=== PATIENT | female | born 1995 | race Hispanic/Latino ===

== ENCOUNTER 2020-03-23 21:36 | Emergency (ER) | payer SELFPAY ==
[~2020-03-23] VITALS: Ht 167.6 cm; Wt 74.8 kg
[2020-03-23] MEDS ORDERED: ONDANSETRON HCL INJ 2MG/ML 2ML 2 MG/ML VIAL IV STA (21:40)
[2020-03-23] MEDS ORDERED: KETOROLAC TROMETHAMINE 30 MG/ML VIAL IV STA ×2 (21:40→22:22)
[2020-03-23] MEDS ORDERED: SODIUM CHLORIDE 0.9% 1000ML 1,000 ML IV SCH ×2 (21:45→23:15)
[2020-03-23] MEDS ORDERED: MORPHINE SULFATE 5 MG/ML VIAL IV ONE (21:45)
[2020-03-23] MEDS ORDERED: PANTOPRAZOLE 40 MG 10ML VIAL IV STA (21:52)
--- NOTE | 2020-03-23 22:03 | Emergency Department Note ---
History of Present Illnes History of Present Illness Chief Complaint: Abdominal Complaints History of Present Illness This is a 24 year old female . Historian: Patient Arrival Mode: Car History limited by: language barrier Tonsorial Artist Required: Yes Onset (how long ago): day(s) (last night seen at [facility] had work up) Radiation: Reports non-radiation Severity: moderate Duration (how long): day(s) (1) Timing of current episode: constant Progression: unchanged Chronicity: recurrent (Pt has hx of chronic abdominal pain multiple work up never seen GI) Relieving factors: none Exacerbating factors: none Associated symptoms: Reports nausea/vomiting Treatments prior to arrival: other (reglan) Past Medical/Family History Physician Review I have reviewed the patient's past medical and family history. Any updates have been documented here. Past Medical History Recent Fever: No Clinical Suspicion of Infectio: No New/Unexplained Change in Ment: No Past Medical History: None Past Surgical History: Cholecysctectomy (1 month ago) Social History Smoking Cessation: Never Smoker Alcohol Use: None Any Illegal Drug Use: No Review of Systems Review of Systems Constitutional: Denies fever Gastrointestinal: Reports abdominal pain, Reports nausea, Reports vomiting Review of other systems: All other systems negative Physical Exam Related Data Allergies: Coded Allergies: No Known Allergies (Unverified , 03/23/20) Physical Exam CONSTITUTIONAL Constitutional: Present well-developed HENT HENT: Present normocephalic EYES Eyes: Reports conjunctivae normal NECK Neck: Present supple PULMONARY Pulmonary: Present breath sounds normal CARDIOVASCULAR Cardiovascular: Present regular rhythm GASTROINTESTINAL Abdominal: Present soft, Present tender; Absent distension, Absent guarding, Absent mass, Absent rebound, Absent hernia GENITOURINARY SKIN MUSCULOSKELETAL Musculoskeletal: Present ROM normal NEUROLOGICAL Neurological: Present alert PSYCHOLOGICAL Psychological: Present mood/affect normal Results Laboratory Laboratory UPT neg UA 160 mg Ketones Nit Neg LE trace CBC WBC 17.6 CMP K 3.2 Lab results reviewed: Yes Imaging Imaging results reviewed: Yes Impressions Patient Name: IRMA DALLAS MR #: [id number] [birth year] Age/Sex: 24/F Req #: [id number] Adm Physician: Ordered by: DEANNA WAGNER MD Report #: [id number] Location: [facility] Room/Bed: Procedure: HOPD/CT ABD/PEL WITH CONTRAST-HOPD Exam Date: 03/23/20 Exam Time: 2232 REPORT STATUS: Signed EXAM: CT Abdomen and Pelvis WITH contrast INDICATION: Abdominal pain COMPARISON: None. TECHNIQUE: Abdomen and pelvis were scanned utilizing a multidetector helical scanner from the lung base to the pubic symphysis after administration of IV contrast. Coronal and sagittal reformations were obtained. Routine protocol was performed. Scan was performed when during portal venous phase. IV CONTRAST: 100 mL of Isovue 370 ORAL CONTRAST: None COMPLICATIONS: None RADIATION DOSE: Total DLP: 357 mGy*cm Estimated effective dose: (DLP x 0.015 x size factor) mSv CTDIvol has been reviewed. It is below the limits set by the Radiation Protocol Committee (RPC). Dose modulation, iterative reconstruction, and/or weight based adjustment of the mA/kV was utilized to reduce the radiation dose to as low as reasonably achievable. FINDINGS: LINES and TUBES: None. LOWER THORAX: Unremarkable HEPATOBILIARY: No focal hepatic lesions. No biliary ductal dilation. GALLBLADDER: There are cholecystectomy clips. SPLEEN: No splenomegaly. PANCREAS: No focal masses or ductal dilatation. ADRENALS: No adrenal nodules KIDNEYS/URETERS: Kidneys enhance symmetrically. No hydronephrosis. No cystic or solid mass lesions. No stones. GI TRACT: No abnormal distention, wall thickening, or evidence of bowel obstruction. Appendix is normal. PELVIC ORGANS/BLADDER: A 3.2 cm simple appearing left ovarian cyst, likely physiologic, no follow-up required. LYMPH NODES: No lymphadenopathy. VESSELS: Unremarkable. PERITONEUM / RETROPERITONEUM: No free air or fluid. BONES: Unremarkable. SOFT TISSUES: Umbilical metallic jewelry. IMPRESSION: No acute CT abnormality in the abdomen or pelvis. Signed by: Ronald Lomeli DO on 03/23/2020 11:49 PM Dictated By: RONALD LOMELI DO 48 Transcribed By: MARQUIS on 03/23/202348 COPY TO: DEANNA WAGNER MD~ Assessment & Plan Assessment & Plan Final Impression: (1) Dehydration (2) Vomiting (3) Abdominal pain Home Meds Active Scripts Sucralfate (SUCRALFATE) 1 Gm Tablet, 1 GM PO BID for 7 Days, #14 TAB Prov:DEANNA WAGNER MD 03/23/20 Omeprazole Magnesium (PRILOSEC OTC) 20 Mg Tablet.dr, 40 MG PO DAILY for 15 Days Prov:DEANNA WAGNER MD 03/23/20 Promethazine Hcl* (PHENERGAN SUPP*) 25 Mg Supp, 25 MG RC TID PRN for NAUSEA for 4 Days, #12 Prov:DEANNA WAGNER MD 03/23/20 Medications in the ED Sodium Chloride 1,000 ml @ 0 mls/hr Q0M IV ; Start 03/23/20 at 21:45; Stop 04/22/20 at 21:44; Status UNV Ondansetron HCl 4 mg NOW STAT IV ; Start 03/23/20 at 21:40; Stop 03/23/20 at 21:41; Status UNV Ketorolac Tromethamine 15 mg ONCE STAT IV ; Start 03/23/20 at 21:40; Stop 03/23/20 at 21:52; Status DC Morphine Sulfate 4 mg ONCE ONCE IV ; Start 03/23/20 at 21:45; Stop 03/23/20 at 21:46; Status UNV Pantoprazole Sodium 40 mg NOW STAT IV ; Start 03/23/20 at 21:52; Stop 03/23/20 at 21:53; Status UNV DEANNA WAGNER MD Mar 23, 2020 22:03
[2020-03-23] MEDS ORDERED: ONDANSETRON HCL INJ 2MG/ML 2ML 2 MG/ML VIAL ONE (22:05)
[2020-03-23] MEDS ORDERED: PANTOPRAZOLE 40 MG 10ML VIAL ONE (22:06)
[2020-03-23] MEDS ORDERED: MORPHINE SULFATE INJ 4 MG/ML INJ 1ML ONE (22:06)
[2020-03-23] MEDS ORDERED: SODIUM CHLORIDE 0.9% 1000ML 1,000 ML ONE ×2 (22:06→23:14)
[2020-03-23] MEDS ORDERED: KETOROLAC TROMETHAMINE 30 MG/ML VIAL ONE (22:06)
[2020-03-23] MEDS ORDERED: IOPAMIDOL 370 MG/ML 200 ML INFUS..BTL INJ ONE (22:08)
[2020-03-23] MEDS ORDERED: SODIUM CHLORIDE 0.9% 50ML 50 ML ONE (22:13)
[2020-03-23] MEDS ORDERED: PHENERGAN SUPP25 MG RC (22:26)
[2020-03-23] MEDS ORDERED: PRILOSEC OTC20 MG PO (22:26)
[2020-03-23] MEDS ORDERED: SUCRALFATE1 GM PO (22:26)
--- NOTE | 2020-03-23 23:18 | NUR ---
PT RESTING QUIETLY ON R-SIDE. RAIL UP, LIGHTS DIMMED. S.O. AT BEDSIDE
--- NOTE | 2020-03-23 23:52 | Diagnostic Imaging Report ---
EXAM: CT Abdomen and Pelvis WITH contrast INDICATION: Abdominal pain COMPARISON: None. TECHNIQUE: Abdomen and pelvis were scanned utilizing a multidetector helical scanner from the lung base to the pubic symphysis after administration of IV contrast. Coronal and sagittal reformations were obtained. Routine protocol was performed. Scan was performed when during portal venous phase. IV CONTRAST: 100 mL of Isovue 370 ORAL CONTRAST: None COMPLICATIONS: None RADIATION DOSE: Total DLP: 357 mGy*cm Estimated effective dose: (DLP x 0.015 x size factor) mSv CTDIvol has been reviewed. It is below the limits set by the Radiation Protocol Committee (RPC). Dose modulation, iterative reconstruction, and/or weight based adjustment of the mA/kV was utilized to reduce the radiation dose to as low as reasonably achievable. FINDINGS: LINES and TUBES: None. LOWER THORAX: Unremarkable HEPATOBILIARY: No focal hepatic lesions. No biliary ductal dilation. GALLBLADDER: There are cholecystectomy clips. SPLEEN: No splenomegaly. PANCREAS: No focal masses or ductal dilatation. ADRENALS: No adrenal nodules KIDNEYS/URETERS: Kidneys enhance symmetrically. No hydronephrosis. No cystic or solid mass lesions. No stones. GI TRACT: No abnormal distention, wall thickening, or evidence of bowel obstruction. Appendix is normal. PELVIC ORGANS/BLADDER: A 3.2 cm simple appearing left ovarian cyst, likely physiologic, no follow-up required. LYMPH NODES: No lymphadenopathy. VESSELS: Unremarkable. PERITONEUM / RETROPERITONEUM: No free air or fluid. BONES: Unremarkable. SOFT TISSUES: Umbilical metallic jewelry. IMPRESSION: No acute CT abnormality in the abdomen or pelvis. Signed by: Ronald Lomeli DO on 03/23/2020 11:49 PM
[2020-03-24 00:19] VITALS: BP 103/60
== END 2020-03-24 00:17 | disposition home or self-care (01) ==
LOC: FSED 21:36
DX: R10.10 Upper abdominal pain, unspecified (principal); R11.2 Nausea with vomiting, unspecified; E86.0 Dehydration
CPT/HCPCS: 36415; 74177; 80053; 81003; 81025; 83690; 85025; 87086; 96374; 96375; 96376; 99284; J1885; J2270; Q9967; J2405; J7030

== ENCOUNTER 2021-11-06 06:04 | Emergency (ER) | payer SELFPAY ==
[~2021-11-06] VITALS: Ht 167.6 cm; Wt 74.8 kg
[~2021-11-06 06:04] MED LIST: PHENERGAN SUPP25 MG RC; PRILOSEC OTC20 MG PO; SUCRALFATE1 GM PO
[2021-11-06] MEDS ORDERED: DICYCLOMINE HCL 20 MG/2 ML VIAL IM ONE (06:15)
[2021-11-06] MEDS ORDERED: SODIUM CHLORIDE 0.9% 1000ML 1,000 ML IV SCH (06:15)
[2021-11-06] MEDS ORDERED: DIPHENHYDRAMINE HCL INJ 50 MG/ML VIAL IV ONE ×2 (06:15→08:00)
[2021-11-06] MEDS ORDERED: METOCLOPRAMIDE HCL 10 MG/2ML VIAL IV ONE (06:15)
[2021-11-06] MEDS ORDERED: IBUPROFEN 400 MG TAB ONE (06:24)
[2021-11-06 06:25] LABS: BASOPHILS % 0.2 % (0.0-1.0); HEMATOCRIT 38.2 % (34.2-44.1); HEMOGLOBIN 12.4 g/dL (12.0-16.0); LYMPHOCYTES # (AUTO) 1.8 (1.0-3.2); LYMPHOCYTES % 9.5 % (18.0-39.1); MEAN CORPUSCULAR HEMOGLOBIN 28.6 pg (28-32); MEAN CORPUSCULAR HGB CONC 32.5 g/dL (31-35); MONOCYTES # (AUTO) 0.5 (0.2-0.8); MONOCYTES % 2.6 % (4.4-11.3); NEUTROPHILS # (AUTO) 16.4 (2.1-6.9); NEUTROPHILS % 87.1 % (38.7-80.0); PLATELET COUNT 234 x10e3/uL (140-360); RED BLOOD COUNT 4.34 x10e6/uL (3.6-5.1); RED CELL DISTRIBUTION WIDTH 13.5 % (11.7-14.4)
[2021-11-06 06:45] LABS: ALBUMIN 4.4 g/dL (3.5-5.0); ALBUMIN/GLOBULIN RATIO 1.2 (0.8-2.0); ANION GAP 17.2 mmol/L (8-16); CALCIUM 9.6 mg/dL (8.4-10.2); CREATININE, SERUM 0.81 mg/dL (0.57-1.11); POTASSIUM 4.2 mmol/L (3.5-5.1)
[2021-11-06] MEDS ORDERED: SODIUM CHLORIDE 0.9% 1000ML 1,000 ML IV STA (06:47)
[2021-11-06] MEDS ORDERED: PIPERACILLIN/TAZOBACTAM 3.375 GM in SODIUM CHLORIDE 0.9% 50ML 50 ML IV STA (06:47)
[2021-11-06] MEDS ORDERED: IOPAMIDOL 370 MG/ML 200 ML INFUS..BTL INJ ONE (07:16)
[2021-11-06] MEDS ORDERED: SODIUM CHLORIDE 0.9% 50ML 50 ML ONE (07:16)
[2021-11-06] MEDS ORDERED: HALOPERIDOL LACTATE 5 MG/ML VIAL IV ONE (08:00)
[2021-11-06 08:28] LABS: CLARITY,URINE CLEAR (CLEAR); COLOR,URINE YELLOW (YELLOW); LEUKOCYTE ESTERASE ,URINE SMALL (NEGATIVE)
[2021-11-06 08:29] LABS: KETONES,URINE 2+ (NEGATIVE); NITRITE,URINE NEGATIVE (NEGATIVE); PROTEIN,URINE DIPSTICK NEGATIVE (NEGATIVE)
[2021-11-06 08:31] LABS: AMPHETAMINES SCREEN,URINE NEGATIVE (NEGATIVE); BENZODIAZEPINES SCREEN,URINE NEGATIVE (NEGATIVE); PHENCYCLIDINE SCREEN,URINE NEGATIVE (NEGATIVE)
[2021-11-06 08:32] LABS: URINE UROBILINOGEN 0.2 mg/dL (0.2 - 1)
[2021-11-06 08:53] LABS: BACTERIA,URINE MODERATE /HPF; EPITHELIAL CELLS,URINE MANY /LPF
[2021-11-06] MEDS ORDERED: CEFTRIAXONE 1 GM in SODIUM CHLORIDE 0.9% 50ML 50 ML IV ONE (09:15)
[2021-11-06 09:48] VITALS: BP 143/98
== END 2021-11-06 09:49 | disposition home or self-care (01) ==
LOC: ER 06:40
DX: R10.9 Unspecified abdominal pain (principal); N39.0 Urinary tract infection, site not specified; R11.2 Nausea with vomiting, unspecified; Z20.822 Contact with and (suspected) exposure to COVID-19; F17.210 Nicotine dependence, cigarettes, uncomplicated
CPT/HCPCS: 36415; 71045; 74177; 80053; 80307; 81001; 83036; 83605; 84702; 85025; 87040; 87086; 99284; J0500; J1200; J1630; J2543; J2765; J7030; Q9967; U0002

== ENCOUNTER 2021-11-07 05:17 | Inpatient (IN) | payer SELFPAY ==
[~2021-11-07] VITALS: Ht 162.6 cm; Wt 74.8 kg
[2021-11-07] MEDS ORDERED: KETOROLAC TROMETHAMINE 30 MG/ML VIAL IV STA (05:31)
[2021-11-07] MEDS ORDERED: SODIUM CHLORIDE 0.9% 1000ML 1,000 ML IV STA ×2 (05:31)
[2021-11-07] MEDS ORDERED: METOCLOPRAMIDE HCL 10 MG/2ML VIAL IV ONE (05:45)
[2021-11-07] MEDS ORDERED: DIPHENHYDRAMINE HCL INJ 50 MG/ML VIAL IV ONE (05:45)
[2021-11-07 05:51] LABS: BASOPHILS % 0.1 % (0.0-1.0); EOSINOPHILS % 0.1 % (0.0-6.0); HEMATOCRIT 41.7 % (34.2-44.1); HEMOGLOBIN 13.3 g/dL (12.0-16.0); LYMPHOCYTES # (AUTO) 1.8 (1.0-3.2); LYMPHOCYTES % 12.2 % (18.0-39.1); MEAN CORPUSCULAR HEMOGLOBIN 28.2 pg (28-32); MEAN CORPUSCULAR HGB CONC 31.9 g/dL (31-35); MEAN CORPUSCULAR VOLUME 88.5 fL (81-99); MONOCYTES # (AUTO) 0.7 (0.2-0.8); MONOCYTES % 4.7 % (4.4-11.3); NEUTROPHILS # (AUTO) 11.8 (2.1-6.9); NEUTROPHILS % 82.4 % (38.7-80.0); PLATELET COUNT 208 x10e3/uL (140-360); RED BLOOD COUNT 4.71 x10e6/uL (3.6-5.1); RED CELL DISTRIBUTION WIDTH 13.7 % (11.7-14.4)
[2021-11-07] MEDS ORDERED: DIPHENHYDRAMINE HCL INJ 50 MG/ML VIAL ONE (06:00)
[2021-11-07] MEDS ORDERED: KETOROLAC TROMETHAMINE 30 MG/ML VIAL ONE (06:00)
[2021-11-07] MEDS ORDERED: METOCLOPRAMIDE HCL 10 MG/2ML VIAL ONE (06:00)
[2021-11-07 06:16] LABS: ANION GAP 17.3 mmol/L (8-16); CREATININE, SERUM 0.82 mg/dL (0.57-1.11); POTASSIUM 3.3 mmol/L (3.5-5.1)
[2021-11-07 06:17] LABS: ALBUMIN 4.3 g/dL (3.5-5.0); ALBUMIN/GLOBULIN RATIO 1.3 (0.8-2.0); CALCIUM 9.4 mg/dL (8.4-10.2)
[2021-11-07 06:36] LABS: THYROID STIMULATING HORMONE 1.101 uIU/mL (0.350-4.940)
[2021-11-07] MEDS ORDERED: Morphine 4mg Syringe 4 MG/ML INJ IV STA (06:54)
[2021-11-07] MEDS ORDERED: ONDANSETRON HCL INJ 2MG/ML 2ML 2 MG/ML VIAL IV STA (06:54)
[2021-11-07] MEDS ORDERED: ONDANSETRON HCL INJ 2MG/ML 2ML 8 MG in SODIUM CHLORIDE 0.9% 50ML 50 ML IV ONE (07:00)
[2021-11-07] MEDS ORDERED: Morphine 4mg Syringe 4 MG/ML INJ ONE (07:07)
[2021-11-07] MEDS ORDERED: ONDANSETRON HCL INJ 2MG/ML 2ML 2 MG/ML VIAL ONE (07:08)
[2021-11-07] MEDS ORDERED: ONDANSETRON HCL INJ 2MG/ML 2ML 2 MG/ML VIAL IV PRN (07:45)
[2021-11-07] MEDS: CEFTRIAXONE 1 GM in SODIUM CHLORIDE 0.9% 50ML 50 ML IV SCH ×2 (08:15→19:55)
[2021-11-07] MEDS ORDERED: DIPHENHYDRAMINE HCL INJ 50 MG/ML VIAL IV PRN (08:45)
[2021-11-07 09:38] VITALS: BP 127/89
[2021-11-07] MEDS ORDERED: Morphine 4mg Syringe 4 MG/ML INJ IV PRN ×2 (10:00→10:30)
[2021-11-07 10:02] VITALS: BP 127/89
[2021-11-07 12:17] VITALS: BP 125/87
[2021-11-07] MEDS: D5NS/KCL 20MEQ 1,000 ML IV SCH ×2 (12:26→19:54)
[2021-11-07] MEDS: METOCLOPRAMIDE HCL 10 MG/2ML VIAL IV SCH ×3 (12:27→23:37)
[2021-11-07 16:48] VITALS: BP 101/66
[2021-11-07] MEDS: HYDROXYZINE PAMOATE 25 MG CAP PO PRN (18:26)
[2021-11-07 20:00] VITALS: BP 93/63
[2021-11-07 21:26] VITALS: BP 93/63
[2021-11-08] VITALS: BP 122/89
[2021-11-08] MEDS: HYDROXYZINE PAMOATE 25 MG CAP PO PRN (00:02)
[2021-11-08 04:00] VITALS: BP 102/73
[2021-11-08] MEDS: METOCLOPRAMIDE HCL 10 MG/2ML VIAL IV SCH (05:22)
[2021-11-08 07:19] LABS: BASOPHILS % 0.4 % (0.0-1.0); EOSINOPHILS % 0.5 % (0.0-6.0); HEMATOCRIT 32.7 % (34.2-44.1); HEMOGLOBIN 10.5 g/dL (12.0-16.0); LYMPHOCYTES # (AUTO) 3.5 (1.0-3.2); LYMPHOCYTES % 44.1 % (18.0-39.1); MEAN CORPUSCULAR HEMOGLOBIN 27.9 pg (28-32); MEAN CORPUSCULAR HGB CONC 32.1 g/dL (31-35); MEAN CORPUSCULAR VOLUME 86.7 fL (81-99); MONOCYTES # (AUTO) 0.7 (0.2-0.8); MONOCYTES % 8.4 % (4.4-11.3); NEUTROPHILS # (AUTO) 3.7 (2.1-6.9); NEUTROPHILS % 46.2 % (38.7-80.0); PLATELET COUNT 168 x10e3/uL (140-360); RED BLOOD COUNT 3.77 x10e6/uL (3.6-5.1); RED CELL DISTRIBUTION WIDTH 13.3 % (11.7-14.4)
[2021-11-08 07:41] LABS: ALBUMIN 3.3 g/dL (3.5-5.0); ALBUMIN/GLOBULIN RATIO 1.4 (0.8-2.0); ANION GAP 10.4 mmol/L (8-16); CALCIUM 8.1 mg/dL (8.4-10.2); CREATININE, SERUM 0.63 mg/dL (0.57-1.11); POTASSIUM 3.4 mmol/L (3.5-5.1)
[2021-11-08] MEDS: CEFTRIAXONE 1 GM in SODIUM CHLORIDE 0.9% 50ML 50 ML IV SCH (07:55)
[2021-11-08 07:56] LABS: CHOL/HDL RATIO 2.5 (3.0-3.6); MAGNESIUM 1.9 MG/DL (1.3-2.1); PHOSPHORUS 2.7 MG/DL (2.3-4.7)
[2021-11-08 08:18] LABS: THYROID STIMULATING HORMONE 1.251 uIU/mL (0.350-4.940)
[2021-11-08 09:10] VITALS: BP 102/66
[2021-11-08 09:29] VITALS: BP 102/66
[2021-11-08] MEDS ORDERED: REGLAN5 MG PO (11:06)
[2021-11-08] MEDS ORDERED: POTASSIUM CHLORIDE 20 MEQ TAB CR PO NR (11:15)
[2021-11-08] MEDS ORDERED: PRILOSEC OTC20 MG PO (11:28)
[2021-11-08] MEDS ORDERED: ONDANSETRON ODT4 MG PO (11:29)
[2021-11-08] MEDS ORDERED: VISTARIL25 MG PO (12:23)
[2021-11-08 12:34] VITALS: BP 127/90
== END 2021-11-08 13:00 | disposition home or self-care (01) | DRG 690 ==
LOC: ER 05:20 → ERHOLD 07:43 → MED/SURG2 08:45
PROVIDERS: ADMIT Internal Medicine; ATTEND Internal Medicine
DX: N39.0 Urinary tract infection, site not specified (principal); E86.0 Dehydration; Z90.49 Acquired absence of other specified parts of digestive tract; F12.90 Cannabis use, unspecified, uncomplicated; R10.13 Epigastric pain; R11.2 Nausea with vomiting, unspecified; E87.6 Hypokalemia; F17.200 Nicotine dependence, unspecified, uncomplicated
CPT/HCPCS: 36415; 80053; 80061; 82150; 83036; 83690; 83735; 84100; 84443; 85025; 94799; 99284; J0696; J1200; J1885; J2270; J2405; J2765; J7030; Q0177

== ENCOUNTER 2021-11-13 15:42 | Inpatient (IN) | payer SELFPAY ==
[~2021-11-13] VITALS: Ht 162.6 cm; Wt 74.8 kg
[~2021-11-13 15:42] MED LIST changes: +ONDANSETRON ODT4 MG PO; +REGLAN5 MG PO; +VISTARIL25 MG PO
[2021-11-13] MEDS ORDERED: METOCLOPRAMIDE HCL 10 MG/2ML VIAL IV STA (15:50)
[2021-11-13] MEDS ORDERED: SODIUM CHLORIDE 0.9% 1000ML 1,000 ML IV STA (15:50)
[2021-11-13] MEDS ORDERED: HALOPERIDOL LACTATE 5 MG/ML VIAL IM STA (16:01)
[2021-11-13 16:17] LABS: BASOPHILS # (AUTO) 0.1 (0.0-0.1); BASOPHILS % 0.3 % (0.0-1.0); EOSINOPHILS % 0.1 % (0.0-6.0); HEMOGLOBIN 13.8 g/dL (12.0-16.0); LYMPHOCYTES # (AUTO) 3.3 (1.0-3.2); LYMPHOCYTES % 15.8 % (18.0-39.1); MEAN CORPUSCULAR HEMOGLOBIN 28.4 pg (28-32); MEAN CORPUSCULAR HGB CONC 32.9 g/dL (31-35); MEAN CORPUSCULAR VOLUME 86.4 fL (81-99); MONOCYTES % 4.7 % (4.4-11.3); NEUTROPHILS # (AUTO) 16.4 (2.1-6.9); NEUTROPHILS % 78.4 % (38.7-80.0); PLATELET COUNT 303 x10e3/uL (140-360); RED BLOOD COUNT 4.86 x10e6/uL (3.6-5.1); RED CELL DISTRIBUTION WIDTH 13.8 % (11.7-14.4)
[2021-11-13 16:34] LABS: CLARITY,URINE CLEAR (CLEAR); COLOR,URINE STRAW (YELLOW)
[2021-11-13 16:35] LABS: KETONES,URINE 2+ (NEGATIVE); LEUKOCYTE ESTERASE ,URINE NEGATIVE (NEGATIVE); NITRITE,URINE NEGATIVE (NEGATIVE); PROTEIN,URINE DIPSTICK 1+ (NEGATIVE); URINE UROBILINOGEN 0.2 mg/dL (0.2 - 1)
[2021-11-13 16:37] LABS: ALBUMIN 4.7 g/dL (3.5-5.0); ALBUMIN/GLOBULIN RATIO 1.4 (0.8-2.0); ANION GAP 20.7 mmol/L (8-16); CALCIUM 9.9 mg/dL (8.4-10.2); CREATININE, SERUM 0.8 mg/dL (0.57-1.11); POTASSIUM 3.7 mmol/L (3.5-5.1)
[2021-11-13 16:38] LABS: AMPHETAMINES SCREEN,URINE NEGATIVE (NEGATIVE); BENZODIAZEPINES SCREEN,URINE NEGATIVE (NEGATIVE); PHENCYCLIDINE SCREEN,URINE NEGATIVE (NEGATIVE)
[2021-11-13] MEDS ORDERED: PROMETHAZINE HCL (IM) 25 MG/ML VIAL IM STA (16:41)
[2021-11-13 16:44] LABS: AMORPHOUS SEDIMENT,URINE MODERATE (FEW); BACTERIA,URINE FEW /HPF; EPITHELIAL CELLS,URINE FEW /LPF; MUCUS,URINE MODERATE (RARE); WBC,URINE (MAN) 0-5 /HPF (0-5)
[2021-11-13] MEDS ORDERED: Morphine 4mg Syringe 4 MG/ML INJ IV ONE (16:45)
[2021-11-13] MEDS: ONDANSETRON HCL INJ 2MG/ML 2ML 2 MG/ML VIAL IV PRN ×2 (17:01→22:10)
[2021-11-13 19:00] VITALS: BP 128/98
[2021-11-13] MEDS ORDERED: ZIPRASIDONE 20 MG VIAL IM PRN ×2 (19:15)
[2021-11-13 20:00] VITALS: BP 128/98
[2021-11-13 20:16] VITALS: BP 128/98
[2021-11-13] MEDS ORDERED: HYDROXYZINE PAM25 MG (21:09)
[2021-11-13] MEDS ORDERED: METOCLOPRAMIDE H5 MG (21:09)
[2021-11-13] MEDS ORDERED: Morphine 2mg Syringe 2 MG/ML SYR IV ONE (22:00)
[2021-11-13] MEDS: SODIUM CHLORIDE 0.9% 1000ML 1,000 ML IV SCH (22:10)
[2021-11-14] VITALS (9 sets, daily range): BP systolic 104–129; BP diastolic 67–90
[2021-11-14] MEDS: ONDANSETRON HCL INJ 2MG/ML 2ML 2 MG/ML VIAL IV PRN (02:00)
[2021-11-14] MEDS: SODIUM CHLORIDE 0.9% 1000ML 1,000 ML IV SCH ×4 (02:48→23:46)
[2021-11-14 05:07] LABS: BASOPHILS % 0.2 % (0.0-1.0); HEMOGLOBIN 12.9 g/dL (12.0-16.0); LYMPHOCYTES # (AUTO) 2.3 (1.0-3.2); LYMPHOCYTES % 13.4 % (18.0-39.1); MEAN CORPUSCULAR HEMOGLOBIN 28.1 pg (28-32); MEAN CORPUSCULAR HGB CONC 33.1 g/dL (31-35); MONOCYTES # (AUTO) 1.2 (0.2-0.8); NEUTROPHILS # (AUTO) 13.2 (2.1-6.9); NEUTROPHILS % 78.6 % (38.7-80.0); PLATELET COUNT 267 x10e3/uL (140-360); RED BLOOD COUNT 4.59 x10e6/uL (3.6-5.1); RED CELL DISTRIBUTION WIDTH 13.7 % (11.7-14.4)
[2021-11-14 05:28] LABS: ALBUMIN 4.4 g/dL (3.5-5.0); ANION GAP 15.9 mmol/L (8-16); CALCIUM 9.5 mg/dL (8.4-10.2); CREATININE, SERUM 0.7 mg/dL (0.57-1.11); POTASSIUM 3.9 mmol/L (3.5-5.1)
[2021-11-14 05:29] LABS: ALBUMIN/GLOBULIN RATIO 1.3 (0.8-2.0)
[2021-11-14] MEDS: METOCLOPRAMIDE HCL 10 MG/2ML VIAL IV SCH ×2 (11:28→17:01)
[2021-11-14] MEDS ORDERED: Morphine 2mg Syringe 2 MG/ML SYR IV ONE (16:15)
[2021-11-14] MEDS: SUCRALFATE 1 GM TAB PO SCH (17:01)
[2021-11-14] MEDS: HYDROXYZINE PAMOATE 25 MG CAP PO PRN (19:13)
[2021-11-15] MEDS: METOCLOPRAMIDE HCL 10 MG/2ML VIAL IV SCH ×3 (01:14→11:26)
[2021-11-15 05:53] VITALS: BP 145/92
[2021-11-15] MEDS: HYDROXYZINE PAMOATE 25 MG CAP PO PRN (06:13)
[2021-11-15] MEDS: ONDANSETRON HCL INJ 2MG/ML 2ML 2 MG/ML VIAL IV PRN ×3 (06:14→18:03)
[2021-11-15 06:28] LABS: BASOPHILS # (AUTO) 0.1 (0.0-0.1); BASOPHILS % 0.6 % (0.0-1.0); EOSINOPHILS % 0.3 % (0.0-6.0); HEMATOCRIT 39.8 % (34.2-44.1); HEMOGLOBIN 13.1 g/dL (12.0-16.0); LYMPHOCYTES # (AUTO) 4.3 (1.0-3.2); LYMPHOCYTES % 29.5 % (18.0-39.1); MEAN CORPUSCULAR HEMOGLOBIN 28.2 pg (28-32); MEAN CORPUSCULAR HGB CONC 32.9 g/dL (31-35); MEAN CORPUSCULAR VOLUME 85.6 fL (81-99); MONOCYTES % 6.7 % (4.4-11.3); NEUTROPHILS % 61.9 % (38.7-80.0); PLATELET COUNT 254 x10e3/uL (140-360); RED BLOOD COUNT 4.65 x10e6/uL (3.6-5.1); RED CELL DISTRIBUTION WIDTH 13.5 % (11.7-14.4)
[2021-11-15 06:41] LABS: ANION GAP 18.2 mmol/L (8-16); CALCIUM 9.3 mg/dL (8.4-10.2); CREATININE, SERUM 0.82 mg/dL (0.57-1.11); PHOSPHORUS 2.4 MG/DL (2.3-4.7); POTASSIUM 3.2 mmol/L (3.5-5.1)
[2021-11-15] MEDS ORDERED: POTASSIUM CHLORIDE 20 MEQ TAB CR PO STA (06:52)
[2021-11-15] MEDS: SUCRALFATE 1 GM TAB PO SCH ×2 (07:30→18:12)
[2021-11-15 08:37] VITALS: BP 141/90
[2021-11-15] MEDS: SODIUM CHLORIDE 0.9% 1000ML 1,000 ML IV SCH ×2 (08:45→16:55)
[2021-11-15] MEDS ORDERED: ACETAMINOPHEN 325 MG TAB PO PRN (09:00)
[2021-11-15] MEDS ORDERED: HYDROXYZINE PAMOATE 25 MG CAP PO PRN (09:00)
[2021-11-15] MEDS ORDERED: PROPRANOLOL HCL 10 MG TAB PO SCH (09:00)
[2021-11-15] MEDS ORDERED: CEFTRIAXONE 1 GM VIAL IM ONE (10:00)
[2021-11-15] MEDS ORDERED: ZIPRASIDONE 20 MG VIAL IM PRN (10:30)
[2021-11-15] MEDS ORDERED: CEFTRIAXONE 1 GM in SODIUM CHLORIDE 0.9% 100 ML IV ONE (10:30)
[2021-11-15] MEDS ORDERED: Morphine 2mg Syringe 2 MG/ML SYR IV ONE (11:00)
[2021-11-15 12:18] VITALS: BP 136/84
[2021-11-15] MEDS: CHLORDIAZEPOXIDE/CLIDINIUM 1 CAP PO SCH ×2 (12:40→16:55)
[2021-11-15] MEDS ORDERED: PROMETHAZINE 12.5MG/ NACL 0.9% 12.5 MG/50 ML BAG IV PRN (17:00)
[2021-11-15 20:45] VITALS: BP 112/83
== END 2021-11-15 21:25 | disposition left against medical advice (07) | DRG 391 ==
LOC: ER 15:45 → ERHOLD 16:37 → IMCU 18:57 → OBSVTOIN 11-15 09:58
PROVIDERS: ADMIT Internal Medicine; ATTEND Internal Medicine
DX: R11.2 Nausea with vomiting, unspecified (principal); U07.1 COVID-19; Z90.49 Acquired absence of other specified parts of digestive tract; F12.90 Cannabis use, unspecified, uncomplicated
CPT/HCPCS: 36415; 71045; 74018; 80048; 80053; 80307; 81001; 81025; 83690; 83735; 84100; 85025; 87086; 94799; 99284; G0378; J0696; J1630; J2270; J2405; J2550; J2765; J3486; J7030; J7050; Q0177; U0002

== ENCOUNTER 2021-12-30 17:02 | Emergency (ER) | payer SELFPAY ==
[~2021-12-30] VITALS: Ht 162.6 cm; Wt 74.8 kg
[~2021-12-30 17:02] MED LIST changes: +HYDROXYZINE PAM25 MG; +METOCLOPRAMIDE H5 MG
[2021-12-30] MEDS ORDERED: SODIUM CHLORIDE 0.9% 1000ML 1,000 ML IV STA (18:16)
[2021-12-30] MEDS ORDERED: HALOPERIDOL 5 MG TAB PO ONE (18:30)
[2021-12-30 18:44] LABS: BASOPHILS % 0.3 % (0.0-1.0); HEMATOCRIT 40.4 % (34.2-44.1); HEMOGLOBIN 13.6 g/dL (12.0-16.0); LYMPHOCYTES # (AUTO) 1.8 (1.0-3.2); LYMPHOCYTES % 12.7 % (18.0-39.1); MEAN CORPUSCULAR HEMOGLOBIN 28.6 pg (28-32); MEAN CORPUSCULAR HGB CONC 33.7 g/dL (31-35); MEAN CORPUSCULAR VOLUME 84.9 fL (81-99); MONOCYTES # (AUTO) 0.6 (0.2-0.8); MONOCYTES % 4.2 % (4.4-11.3); NEUTROPHILS # (AUTO) 11.6 (2.1-6.9); NEUTROPHILS % 82.1 % (38.7-80.0); PLATELET COUNT 275 x10e3/uL (140-360); RED BLOOD COUNT 4.76 x10e6/uL (3.6-5.1)
[2021-12-30] MEDS ORDERED: ONDANSETRON HCL INJ 2MG/ML 2ML 2 MG/ML VIAL IV STA (18:55)
[2021-12-30] MEDS ORDERED: HALOPERIDOL LACTATE 5 MG/ML VIAL IM ONE (19:00)
[2021-12-30] MEDS ORDERED: ONDANSETRON HCL INJ 2MG/ML 2ML 2 MG/ML VIAL ONE (19:06)
[2021-12-30] MEDS ORDERED: HALOPERIDOL LACTATE 5 MG/ML VIAL ONE (19:06)
[2021-12-30 19:22] LABS: ALANINE AMINOTRANSFERASE 15 IU/L (0-55); ALBUMIN 4.5 g/dL (3.5-5.0); ALBUMIN/GLOBULIN RATIO 1.3 (0.8-2.0); ALKALINE PHOSPHATASE 59 IU/L (40-150); ANION GAP 17.5 mmol/L (8-16); BLOOD UREA NITROGEN 19 mg/dL (7-26); BUN/CREATININE RATIO 23 (6-25); CALCIUM 9.2 mg/dL (8.4-10.2); CARBON DIOXIDE 18 mmol/L (22-29); CHLORIDE 106 mmol/L (98-107); CREATININE, SERUM 0.81 mg/dL (0.57-1.11); EST GLOMERULAR FILTRATION RATE 85 ML/MIN (60-); GLUCOSE 162 mg/dL (74-118); POTASSIUM 3.5 mmol/L (3.5-5.1); SODIUM 138 mmol/L (136-145)
[2021-12-30 19:31] LABS: HCG,QUANTITATIVE < 1.20 mIU/mL (0-10)
[2021-12-30] MEDS ORDERED: PHENERGAN SUPP25 MG PR (20:14)
[2021-12-30] MEDS ORDERED: PROMETHAZINE HCL (IM) 25 MG/ML VIAL IM ONE (20:15)
[2021-12-30] MEDS ORDERED: DICYCLOMINE HCL 20 MG/2 ML VIAL IM ONE (20:15)
[2021-12-30] MEDS ORDERED: Morphine 4mg Syringe 4 MG/ML INJ IV STA (20:44)
[2021-12-30 21:24] VITALS: BP 121/79
== END 2021-12-30 22:04 | disposition home or self-care (01) ==
LOC: ER 19:58
DX: R10.13 Epigastric pain (principal); R11.2 Nausea with vomiting, unspecified; F12.10 Cannabis abuse, uncomplicated
CPT/HCPCS: 36415; 80053; 84702; 85025; 99283; C9113; J0500; J1630; J2270; J2405; J2550; J7030

== ENCOUNTER 2022-03-03 22:14 | Emergency (ER) | payer SELFPAY ==
[~2022-03-03] VITALS: Ht 162.6 cm; Wt 71.7 kg
[~2022-03-03 22:14] MED LIST changes: +PHENERGAN SUPP25 MG PR
[2022-03-03] MEDS ORDERED: SODIUM CHLORIDE 0.9% 1000ML 1,000 ML IV STA (22:23)
[2022-03-03] MEDS ORDERED: PROMETHAZINE 25MG/ NS 50ML (IV) IV ONE (22:30)
[2022-03-03] MEDS ORDERED: HALOPERIDOL LACTATE 5 MG/ML VIAL IV ONE (22:30)
[2022-03-03] MEDS ORDERED: SODIUM CHLORIDE 0.9% 1000ML 1,000 ML ONE (22:44)
[2022-03-03] MEDS ORDERED: PROMETHAZINE HCL (IM) 25 MG/ML VIAL IM ONE (22:44)
[2022-03-03] MEDS ORDERED: HALOPERIDOL LACTATE 5 MG/ML VIAL ONE (22:44)
[2022-03-03] MEDS ORDERED: PROMETHAZINE HC25 M1 PO (23:41)
[2022-03-03] MEDS ORDERED: PEPCID20 MG PO (23:41)
[2022-03-04] MEDS ORDERED: KETOROLAC TROMETHAMINE 30 MG/ML VIAL ONE (00:05)
[2022-03-04] MEDS ORDERED: PIPERACILLIN/TAZOBACTAM 3.375 GM VIAL ONE (00:06)
[2022-03-04] MEDS ORDERED: SODIUM CHLORIDE 0.9% 1000ML 3,000 ML ONE (00:06)
[2022-03-04] MEDS ORDERED: Vancomycin IV 1 GM VIAL ONE (00:06)
== END 2022-03-04 01:46 | disposition home or self-care (01) ==
LOC: FSED 22:20
DX: R11.2 Nausea with vomiting, unspecified (principal); F12.90 Cannabis use, unspecified, uncomplicated; F17.210 Nicotine dependence, cigarettes, uncomplicated
CPT/HCPCS: 80053; 85025; 99283; J1630; J1885; J2543; J2550; J3370; J7030 ×2

== ENCOUNTER 2022-04-01 02:54 | Emergency (ER) | payer SELFPAY ==
[~2022-04-01] VITALS: Ht 162.6 cm; Wt 71.7 kg
[~2022-04-01 02:54] MED LIST changes: +PEPCID20 MG PO; +PROMETHAZINE HC25 M1 PO
[2022-04-01] MEDS ORDERED: HALOPERIDOL LACTATE 5 MG/ML VIAL IV ONE ×3 (03:00→04:45)
[2022-04-01] MEDS ORDERED: LACTATED RINGER'S 1,000 ML INJ ONE (03:15)
[2022-04-01 03:28] LABS: BASOPHILS % 0.2 % (0.0-1.0); HEMATOCRIT 39.9 % (34.2-44.1); HEMOGLOBIN 13.2 g/dL (12.0-16.0); LYMPHOCYTES # (AUTO) 1.3 (1.0-3.2); MEAN CORPUSCULAR HEMOGLOBIN 29.1 pg (28-32); MEAN CORPUSCULAR HGB CONC 33.1 g/dL (31-35); MEAN CORPUSCULAR VOLUME 87.9 fL (81-99); MONOCYTES # (AUTO) 0.5 (0.2-0.8); MONOCYTES % 2.6 % (4.4-11.3); NEUTROPHILS # (AUTO) 16.4 (2.1-6.9); NEUTROPHILS % 89.8 % (38.7-80.0); RED BLOOD COUNT 4.54 x10e6/uL (3.6-5.1); RED CELL DISTRIBUTION WIDTH 12.8 % (11.7-14.4)
[2022-04-01] MEDS ORDERED: CAPSAICIN 0.025% CREAM TP ONE (03:45)
[2022-04-01 03:48] LABS: PLATELET COUNT 278 x10e3/uL (140-360)
[2022-04-01 04:09] LABS: ALBUMIN 4.6 g/dL (3.5-5.0); ALBUMIN/GLOBULIN RATIO 1.2 (0.8-2.0); ANION GAP 20.7 mmol/L (8-16); CALCIUM 10.4 mg/dL (8.4-10.2); CREATININE, SERUM 0.93 mg/dL (0.57-1.11); POTASSIUM 3.7 mmol/L (3.5-5.1)
[2022-04-01] MEDS ORDERED: CAPSAICIN42.5 GM EXT (04:17)
[2022-04-01] MEDS ORDERED: HALOPERIDOL1 MG PO (04:18)
[2022-04-01 04:35] LABS: CLARITY,URINE CLEAR (CLEAR); COLOR,URINE YELLOW (YELLOW); LEUKOCYTE ESTERASE ,URINE NEGATIVE (NEGATIVE)
[2022-04-01 04:36] LABS: AMPHETAMINES SCREEN,URINE NEGATIVE (NEGATIVE); BENZODIAZEPINES SCREEN,URINE POSITIVE (NEGATIVE); KETONES,URINE 2+ (NEGATIVE); NITRITE,URINE NEGATIVE (NEGATIVE); PHENCYCLIDINE SCREEN,URINE NEGATIVE (NEGATIVE); PROTEIN,URINE DIPSTICK 2+ (NEGATIVE); URINE UROBILINOGEN 0.2 mg/dL (0.2 - 1)
[2022-04-01 04:40] LABS: AMORPHOUS SEDIMENT,URINE FEW (FEW); BACTERIA,URINE FEW /HPF; EPITHELIAL CELLS,URINE RARE /LPF; MUCUS,URINE FEW (RARE); RBC,URINE 0-5 /HPF (0-5); WBC,URINE (MAN) 0-5 /HPF (0-5)
[2022-04-01] MEDS ORDERED: PROMETHAZINE 12.5MG/ NACL 0.9% 12.5 MG/50 ML BAG IV ONE (04:45)
[2022-04-01] MEDS ORDERED: PROMETHAZINE HCL (IM) 25 MG/ML VIAL IM ONE (04:46)
[2022-04-01] MEDS ORDERED: IOPAMIDOL 370 MG/ML 100 ML INFUS..BTL INJ ONE (07:04)
== END 2022-04-01 06:25 | disposition home or self-care (01) ==
LOC: ER 03:02
DX: R11.2 Nausea with vomiting, unspecified (principal); F12.10 Cannabis abuse, uncomplicated; Z90.49 Acquired absence of other specified parts of digestive tract
CPT/HCPCS: 36415; 74177; 80053; 80307; 81001; 83690; 84702; 85025; 93005; 99284; J1630; J2550; J7121; Q9967

== ENCOUNTER 2022-04-07 19:31 | Emergency (ER) | payer SELFPAY ==
[~2022-04-07] VITALS: Ht 162.6 cm; Wt 71.7 kg
[~2022-04-07 19:31] MED LIST changes: +CAPSAICIN42.5 GM EXT; +HALOPERIDOL1 MG PO
[2022-04-07] MEDS ORDERED: FAMOTIDINE 20 MG/2 ML VIAL IV STA (19:42)
[2022-04-07] MEDS ORDERED: HALOPERIDOL LACTATE 5 MG/ML VIAL IV ONE (19:45)
[2022-04-07] MEDS ORDERED: SODIUM CHLORIDE 0.9% 1000ML 1,000 ML IV SCH (19:45)
[2022-04-07] MEDS ORDERED: SODIUM CHLORIDE 0.9% 1000ML 1,000 ML ONE (19:57)
[2022-04-07] MEDS ORDERED: HALOPERIDOL LACTATE 5 MG/ML VIAL ONE (19:57)
[2022-04-07] MEDS ORDERED: ONDANSETRON HCL INJ 2MG/ML 2ML 2 MG/ML VIAL ONE (19:58)
[2022-04-07] MEDS ORDERED: FAMOTIDINE 20 MG/2 ML VIAL IV ONE (19:58)
[2022-04-07] MEDS ORDERED: SODIUM CHLORIDE 0.9% 1000ML 1,000 ML IV ONE ×2 (20:00→21:15)
[2022-04-07 20:05] LABS: BASOPHILS % 0.2 % (0.0-1.0); HEMATOCRIT 37.1 % (34.2-44.1); HEMOGLOBIN 12.6 g/dL (12.0-16.0); LYMPHOCYTES # (AUTO) 1.2 (1.0-3.2); LYMPHOCYTES % 7.1 % (18.0-39.1); MEAN CORPUSCULAR HEMOGLOBIN 29.1 pg (28-32); MEAN CORPUSCULAR VOLUME 85.7 fL (81-99); MONOCYTES # (AUTO) 0.4 (0.2-0.8); NEUTROPHILS # (AUTO) 15.7 (2.1-6.9); NEUTROPHILS % 90.2 % (38.7-80.0); PLATELET COUNT 259 x10e3/uL (140-360); RED BLOOD COUNT 4.33 x10e6/uL (3.6-5.1); RED CELL DISTRIBUTION WIDTH 12.6 % (11.7-14.4)
[2022-04-07 20:23] LABS: ALBUMIN 4.4 g/dL (3.5-5.0); ALBUMIN/GLOBULIN RATIO 1.3 (0.8-2.0); ANION GAP 21.4 mmol/L (8-16); CALCIUM 9.1 mg/dL (8.4-10.2); CREATININE, SERUM 0.85 mg/dL (0.57-1.11); POTASSIUM 3.4 mmol/L (3.5-5.1)
[2022-04-07 21:02] LABS: CLARITY,URINE SL CLOUDY (CLEAR); COLOR,URINE YELLOW (YELLOW)
[2022-04-07 21:03] LABS: KETONES,URINE 2+ (NEGATIVE); LEUKOCYTE ESTERASE ,URINE TRACE (NEGATIVE); NITRITE,URINE NEGATIVE (NEGATIVE); PROTEIN,URINE DIPSTICK 1+ (NEGATIVE); URINE UROBILINOGEN 0.2 mg/dL (0.2 - 1)
[2022-04-07 21:06] LABS: AMPHETAMINES SCREEN,URINE NEGATIVE (NEGATIVE); BENZODIAZEPINES SCREEN,URINE NEGATIVE (NEGATIVE); PHENCYCLIDINE SCREEN,URINE NEGATIVE (NEGATIVE)
[2022-04-07 21:08] LABS: BACTERIA,URINE MODERATE /HPF; EPITHELIAL CELLS,URINE MODERATE /LPF; MUCUS,URINE RARE (RARE); WBC,URINE (MAN) 0-5 /HPF (0-5)
[2022-04-07] MEDS ORDERED: MAGNESIUM SULFATE 2GM/50ML 50 ML IV ONE (21:30)
[2022-04-07] MEDS ORDERED: POTASSIUM CHLORIDE 10MEQ/100ML 200 ML IV ONE (21:30)
[2022-04-07] MEDS ORDERED: DICYCLOMINE HCL 20 MG/2 ML VIAL IM ONE (21:30)
[2022-04-07] MEDS ORDERED: POTASSIUM CHLORIDE 20MEQ/100ML 100 ML ONE (21:37)
[2022-04-07] MEDS ORDERED: SODIUM BICARBONATE 8.4% 150 ML in DEXTROSE 5% 1,000 ML IV ONE (23:00)
[2022-04-07] MEDS ORDERED: DEXTROSE 5% 1,000 ML IV ONE (23:15)
[2022-04-07] MEDS ORDERED: SODIUM BICARBONATE 8.4% SYRING 150 ML ONE (23:16)
[2022-04-08 01:17] LABS: ANION GAP 12.4 mmol/L (8-16); CALCIUM 7.7 mg/dL (8.4-10.2); CREATININE, SERUM 0.75 mg/dL (0.57-1.11); POTASSIUM 3.4 mmol/L (3.5-5.1)
[2022-04-08] MEDS ORDERED: DICYCLOMINE HCL20 MG PO (01:30)
[2022-04-08] MEDS ORDERED: ONDANSETRON ODT4 MG PO (01:30)
[2022-04-08 01:31] VITALS: BP 98/72
== END 2022-04-08 01:40 | disposition home or self-care (01) ==
LOC: ER 19:42
DX: R11.2 Nausea with vomiting, unspecified (principal); F12.90 Cannabis use, unspecified, uncomplicated; E87.2 Acidosis; E86.0 Dehydration; R10.13 Epigastric pain
CPT/HCPCS: 36415; 80048; 80053; 80307; 81001; 83690; 84702; 85025; 93005; 99284; J0500; J1630; J3475; J3480; J7030; J7070; J2405

== ENCOUNTER 2024-04-16 22:40 | Emergency (ER) | payer SELFPAY ==
[~2024-04-16] VITALS: Ht 162.6 cm; Wt 61.7 kg
[~2024-04-16 22:40] MED LIST changes: +DICYCLOMINE HCL20 MG PO
[2024-04-16 23:28] LABS: EOSINOPHILS # (AUTO) 0.1 (0.0-0.4); LYMPHOCYTES # (AUTO) 1.6 (1.0-3.2); LYMPHOCYTES % 15.7 % (18.0-39.1); MEAN CORPUSCULAR HEMOGLOBIN 25.2 pg (28-32); MEAN CORPUSCULAR HGB CONC 30.4 g/dL (31-35); MEAN CORPUSCULAR VOLUME 82.9 fL (81-99); MONOCYTES # (AUTO) 0.9 (0.2-0.8); MONOCYTES % 8.8 % (4.4-11.3); NEUTROPHILS # (AUTO) 7.5 (2.1-6.9); NEUTROPHILS % 73.9 % (38.7-80.0); PLATELET COUNT 257 x10e3/uL (140-360); RED BLOOD COUNT 2.22 x10e6/uL (3.6-5.1); RED CELL DISTRIBUTION WIDTH 16.3 % (11.7-14.4)
[2024-04-16 23:30] LABS: HEMATOCRIT 18.4 % (34.2-44.1); HEMOGLOBIN 5.6 g/dL (12.0-16.0)
[2024-04-16 23:37] LABS: ANION GAP 12.4 mmol/L (8-16); CALCIUM 8.5 mg/dL (8.4-10.2); CREATININE, SERUM 0.74 mg/dL (0.57-1.11)
[2024-04-16 23:38] LABS: POTASSIUM 3.4 mmol/L (3.5-5.1)
[2024-04-17] MEDS ORDERED: ONDANSETRON HCL INJ 2MG/ML 2ML 2 MG/ML VIAL ONE (00:40)
[2024-04-17] MEDS: ONDANSETRON HCL INJ 2MG/ML 2ML 2 MG/ML VIAL IV STA (01:01)
[2024-04-17] MEDS: SODIUM CHLORIDE 0.9% 250ML 250 ML IV ONE (01:01)
[2024-04-17 01:15] VITALS: TEMP 97.6
[2024-04-17 01:30] VITALS: PULSE 92; RESP 22; O2SAT 100
== END 2024-04-17 01:43 | disposition other institution (70) ==
LOC: ER 22:44
DX: D64.9 Anemia, unspecified (principal); N93.8 Other specified abnormal uterine and vaginal bleeding; F12.10 Cannabis abuse, uncomplicated
CPT/HCPCS: 36415; 80048; 84702; 85025; 86850; 86900; 86920; 99284; J2405; J7050; P9016

== ENCOUNTER 2024-06-14 16:03 | Inpatient (IN) | payer OTHER ==
[~2024-06-14] VITALS: Ht 162.6 cm; Wt 61.2 kg
[2024-06-14 16:03] VITALS: TEMP 98.7
[2024-06-14 16:47] LABS: BASOPHILS % 0.2 % (0.0-1.0); HEMOGLOBIN 14.6 g/dL (12.0-16.0); LYMPHOCYTES # (AUTO) 3.2 (1.0-3.2); LYMPHOCYTES % 15.4 % (18.0-39.1); MEAN CORPUSCULAR HEMOGLOBIN 25.8 pg (28-32); MEAN CORPUSCULAR HGB CONC 32.4 g/dL (31-35); MEAN CORPUSCULAR VOLUME 79.5 fL (81-99); MONOCYTES # (AUTO) 1.1 (0.2-0.8); MONOCYTES % 5.5 % (4.4-11.3); NEUTROPHILS # (AUTO) 16.1 (2.1-6.9); NEUTROPHILS % 78.4 % (38.7-80.0); PLATELET COUNT 323 x10e3/uL (140-360); RED BLOOD COUNT 5.66 x10e6/uL (3.6-5.1); RED CELL DISTRIBUTION WIDTH 15.7 % (11.7-14.4); WHITE BLOOD COUNT 20.55 x10e3/uL (4.8-10.8)
[2024-06-14 17:02] LABS: ALANINE AMINOTRANSFERASE 7 IU/L (0-55); ALBUMIN 5.4 g/dL (3.5-5.0); ALBUMIN/GLOBULIN RATIO 1.5 (0.8-2.0); ALKALINE PHOSPHATASE 63 IU/L (40-150); ANION GAP 23.9 mmol/L (8-16); BILIRUBIN,TOTAL 0.9 mg/dL (0.2-1.2); BLOOD UREA NITROGEN 22 mg/dL (7-26); BUN/CREATININE RATIO 19 (6-25); CALCIUM 10.8 mg/dL (8.4-10.2); CARBON DIOXIDE 23 mmol/L (22-29); CHLORIDE 94 mmol/L (98-107); CREATININE, SERUM 1.16 mg/dL (0.57-1.11); EST GLOMERULAR FILTRATION RATE 66 ML/MIN (>=60); GLUCOSE 98 mg/dL (74-118); LIPASE 34 U/L (8-78); MAGNESIUM 1.8 MG/DL (1.3-2.1); SODIUM 138 mmol/L (136-145); TOTAL PROTEIN 9.1 g/dL (6.5-8.1)
[2024-06-14 17:03] LABS: POTASSIUM 2.9 mmol/L (3.5-5.1)
[2024-06-14] MEDS: SODIUM CHLORIDE 0.9% 1000ML 1,000 ML IV ONE ×2 (18:19→19:10)
[2024-06-14] MEDS: DIPHENHYDRAMINE HCL INJ 50 MG/ML VIAL IV ONE (18:24)
[2024-06-14] MEDS: HALOPERIDOL LACTATE 5 MG/ML VIAL IV ONE (18:27)
[2024-06-14] MEDS: POTASSIUM CHLORIDE 10MEQ/100ML 200 ML IV ONE (18:31)
[2024-06-14] MEDS ORDERED: PROMETHAZINE 12.5MG/ NACL 0.9% 12.5 MG/50 ML BAG IV PRN (18:45)
[2024-06-14 18:51] LABS: BILIRUBIN,URINE NEGATIVE (NEGATIVE); CLARITY,URINE CLEAR (CLEAR); COLOR,URINE YELLOW (YELLOW); GLUCOSE, URINE NEGATIVE (NEGATIVE); KETONES,URINE 2+ (NEGATIVE); LEUKOCYTE ESTERASE ,URINE NEGATIVE (NEGATIVE); NITRITE,URINE NEGATIVE (NEGATIVE); PH,URINE 8.5 (5 - 7); PROTEIN,URINE DIPSTICK NEGATIVE (NEGATIVE); URINE UROBILINOGEN 0.2 mg/dL (0.2 - 1)
[2024-06-14] MEDS: DICYCLOMINE HCL 20 MG/2 ML VIAL IM ONE (19:11)
[2024-06-14 19:14] LABS: EPITHELIAL CELLS,URINE MODERATE /LPF
[2024-06-14 19:25] VITALS: PULSE 66; RESP 16
[2024-06-14] MEDS: POTASSIUM CHLORIDE 20 MEQ TAB CR PO ONE (20:04)
[2024-06-14 20:15] VITALS: BP 126/81; PULSE 80; RESP 18; TEMP 98.3; O2SAT 97
[2024-06-14] MEDS: KCL 20MEQ/.9 SOD CHL 1,000 ML IV ONE (20:49)
[2024-06-14 20:55] VITALS: BP 126/81; PULSE 80; RESP 18; TEMP 98.3; O2SAT 97
[2024-06-14] MEDS ORDERED: IOPAMIDOL 370 MG/ML 100 ML INFUS..BTL INJ ONE (22:19)
[2024-06-14 23:14] VITALS: BP 126/89; PULSE 78; RESP 18; TEMP 98.2; O2SAT 99
[2024-06-14] MEDS: ONDANSETRON HCL INJ 2MG/ML 2ML 2 MG/ML VIAL IV PRN (23:22)
[2024-06-14] MEDS: DICYCLOMINE HCL 20 MG/2 ML VIAL IM PRN (23:23)
[2024-06-15] VITALS (8 sets, daily range): BP systolic 101–134; BP diastolic 68–97; PULSE 69–86; RESP 17–20; TEMP 98–98.9; O2SAT 93–100
[2024-06-15] MEDS: DIPHENHYDRAMINE HCL INJ 50 MG/ML VIAL IV PRN (03:01)
[2024-06-15] MEDS: PROMETHAZINE 12.5MG/ NACL 0.9% 50 ML IV PRN (03:02)
[2024-06-15 06:37] LABS: BASOPHILS # (AUTO) 0.1 (0.0-0.1); BASOPHILS % 0.4 % (0.0-1.0); EOSINOPHILS % 0.2 % (0.0-6.0); HEMATOCRIT 43.1 % (34.2-44.1); HEMOGLOBIN 13.2 g/dL (12.0-16.0); LYMPHOCYTES # (AUTO) 2.5 (1.0-3.2); LYMPHOCYTES % 21.7 % (18.0-39.1); MEAN CORPUSCULAR HEMOGLOBIN 25.8 pg (28-32); MEAN CORPUSCULAR HGB CONC 30.6 g/dL (31-35); MEAN CORPUSCULAR VOLUME 84.3 fL (81-99); MONOCYTES # (AUTO) 0.8 (0.2-0.8); MONOCYTES % 7.3 % (4.4-11.3); NEUTROPHILS # (AUTO) 8.1 (2.1-6.9); PLATELET COUNT 214 x10e3/uL (140-360); RED BLOOD COUNT 5.11 x10e6/uL (3.6-5.1); RED CELL DISTRIBUTION WIDTH 15.6 % (11.7-14.4); WHITE BLOOD COUNT 11.55 x10e3/uL (4.8-10.8)
[2024-06-15] MEDS ORDERED: METOPROLOL TARTRATE INJ 1 MG/ML VIAL IV PRN (08:30)
[2024-06-15] MEDS ORDERED: MELATONIN 3 MG TAB PO PRN (08:30)
[2024-06-15] MEDS ORDERED: ACETAMINOPHEN 325 MG TAB PO PRN (08:30)
[2024-06-15] MEDS ORDERED: ALBUTEROL/IPRATROPIUM 3 ML NEB NEB PRN (08:30)
[2024-06-15 09:00] LABS: ALBUMIN 3.7 g/dL (3.5-5.0); ALBUMIN/GLOBULIN RATIO 1.5 (0.8-2.0); ALKALINE PHOSPHATASE 42 IU/L (40-150); ANION GAP 13.6 mmol/L (8-16); BILIRUBIN,TOTAL 0.7 mg/dL (0.2-1.2); BLOOD UREA NITROGEN 17 mg/dL (7-26); BUN/CREATININE RATIO 20 (6-25); CALCIUM 8.4 mg/dL (8.4-10.2); CARBON DIOXIDE 22 mmol/L (22-29); CHLORIDE 106 mmol/L (98-107); CREATININE, SERUM 0.86 mg/dL (0.57-1.11); EST GLOMERULAR FILTRATION RATE 94 ML/MIN (>=60); GLUCOSE 94 mg/dL (74-118); POTASSIUM 3.6 mmol/L (3.5-5.1); SODIUM 138 mmol/L (136-145); TOTAL PROTEIN 6.1 g/dL (6.5-8.1)
[2024-06-15 09:03] LABS: ALANINE AMINOTRANSFERASE < 6 IU/L (0-55)
[2024-06-15] MEDS: CYCLOBENZAPRINE HCL 10 MG TAB PO PRN (10:22)
[2024-06-15] MEDS: CALCIUM CARBONATE 500 MG CHEWABLE TABS PO SCH (14:34)
[2024-06-15] MEDS: DICYCLOMINE HCL 20 MG TAB PO PRN (17:44)
[2024-06-15] MEDS: HYDROXYZINE HCL 25 MG TAB PO PRN (17:44)
[2024-06-15] MEDS: SIMETHICONE 80 MG CHEW PO PRN (17:46)
[2024-06-16] VITALS (12 sets, daily range): BP systolic 107–145; BP diastolic 72–90; PULSE 67–99; RESP 17–20; TEMP 98–98.6; O2SAT 93–100
[2024-06-16 05:09] LABS: BASOPHILS % 0.4 % (0.0-1.0); EOSINOPHILS % 0.4 % (0.0-6.0); HEMATOCRIT 38.1 % (34.2-44.1); HEMOGLOBIN 11.8 g/dL (12.0-16.0); LYMPHOCYTES # (AUTO) 2.9 (1.0-3.2); LYMPHOCYTES % 26.9 % (18.0-39.1); MEAN CORPUSCULAR HEMOGLOBIN 25.4 pg (28-32); MEAN CORPUSCULAR VOLUME 81.9 fL (81-99); MONOCYTES # (AUTO) 0.9 (0.2-0.8); MONOCYTES % 8.2 % (4.4-11.3); NEUTROPHILS # (AUTO) 6.8 (2.1-6.9); NEUTROPHILS % 63.5 % (38.7-80.0); PLATELET COUNT 228 x10e3/uL (140-360); RED BLOOD COUNT 4.65 x10e6/uL (3.6-5.1); WHITE BLOOD COUNT 10.62 x10e3/uL (4.8-10.8)
[2024-06-16 05:59] LABS: ANION GAP 15.2 mmol/L (8-16); CALCIUM 8.4 mg/dL (8.4-10.2); CREATININE, SERUM 0.83 mg/dL (0.57-1.11)
[2024-06-16] MEDS ORDERED: TRAMADOL HCL 50 MG TAB PO PRN (06:00)
[2024-06-16 06:02] LABS: POTASSIUM 3.2 mmol/L (3.5-5.1)
[2024-06-16] MEDS: CYCLOBENZAPRINE HCL 10 MG TAB PO SCH (11:12)
[2024-06-16] MEDS: DONNATAL/LIDOCAINE/MAALOX 30 ML SUSP PO SCH (12:15)
[2024-06-16] MEDS: SODIUM CHLORIDE 0.45% IV SCH (13:01)
[2024-06-16] MEDS: SODIUM BICARBONATE 8.4% IV SCH (13:01)
[2024-06-17] VITALS: BP 117/81; PULSE 82; RESP 16; TEMP 99; O2SAT 94
[2024-06-17] MEDS: PROMETHAZINE 12.5MG/ NACL 0.9% 12.5 MG/50 ML BAG IV PRN (00:11)
[2024-06-17] MEDS: METOCLOPRAMIDE HCL 10 MG/2ML VIAL IV STA (01:01)
[2024-06-17 04:00] VITALS: BP 119/80; PULSE 84; RESP 17; TEMP 98.4; O2SAT 95
[2024-06-17 05:20] LABS: BASOPHILS % 0.3 % (0.0-1.0); EOSINOPHILS # (AUTO) 0.1 (0.0-0.4); EOSINOPHILS % 0.8 % (0.0-6.0); HEMATOCRIT 40.1 % (34.2-44.1); HEMOGLOBIN 12.5 g/dL (12.0-16.0); LYMPHOCYTES # (AUTO) 2.6 (1.0-3.2); LYMPHOCYTES % 29.8 % (18.0-39.1); MEAN CORPUSCULAR HEMOGLOBIN 25.3 pg (28-32); MEAN CORPUSCULAR HGB CONC 31.2 g/dL (31-35); MONOCYTES # (AUTO) 0.8 (0.2-0.8); MONOCYTES % 8.7 % (4.4-11.3); NEUTROPHILS # (AUTO) 5.3 (2.1-6.9); NEUTROPHILS % 59.9 % (38.7-80.0); PLATELET COUNT 237 x10e3/uL (140-360); RED BLOOD COUNT 4.95 x10e6/uL (3.6-5.1); RED CELL DISTRIBUTION WIDTH 14.9 % (11.7-14.4); WHITE BLOOD COUNT 8.83 x10e3/uL (4.8-10.8)
[2024-06-17 05:44] LABS: ANION GAP 16.3 mmol/L (8-16); CALCIUM 8.5 mg/dL (8.4-10.2); CREATININE, SERUM 0.59 mg/dL (0.57-1.11)
[2024-06-17 05:48] LABS: POTASSIUM 3.3 mmol/L (3.5-5.1)
[2024-06-17] MEDS: METOCLOPRAMIDE HCL 10 MG/2ML VIAL IV SCH (06:33)
[2024-06-17 08:42] VITALS: BP 106/57; PULSE 97; RESP 18; TEMP 98.1; O2SAT 95
[2024-06-17 09:19] VITALS: BP 106/57; PULSE 97; RESP 18; TEMP 98.1
[2024-06-17 13:08] VITALS: BP 123/84; PULSE 79; RESP 17; TEMP 97.9; O2SAT 98
[2024-06-17 16:06] VITALS: PULSE 69; RESP 18; O2SAT 96
[2024-06-17] MEDS ORDERED: CYCLOBENZAPRINE10 MG PO (19:29)
[2024-06-17] MEDS ORDERED: TUMS200 MG PO (19:29)
[2024-06-17] MEDS ORDERED: PANTOPRAZOLE SO40 MG PO (19:29)
[2024-06-17] MEDS ORDERED: HYDROXYZINE HCL25 MG PO (19:29)
[2024-06-17] MEDS ORDERED: ONDANSETRON ODT4 MG PO (19:29)
== END 2024-06-17 19:47 | disposition home or self-care (01) | DRG 392 ==
LOC: ER 16:18 → ERHOLD 18:50 → MED/SURG3 20:14 → OBSVTOIN 06-16 10:47
PROVIDERS: ADMIT Internal Medicine; ATTEND Internal Medicine
DX: K52.9 Noninfective gastroenteritis and colitis, unspecified (principal); E83.52 Hypercalcemia; E87.6 Hypokalemia; E86.0 Dehydration; K21.9 Gastro-esophageal reflux disease without esophagitis; Z90.49 Acquired absence of other specified parts of digestive tract; F12.10 Cannabis abuse, uncomplicated; F17.210 Nicotine dependence, cigarettes, uncomplicated; Z86.16 Personal history of COVID-19
CPT/HCPCS: 36415; 74018; 74177; 80048; 80053; 81001; 83690; 83735; 84702; 85025; 87040; 87086; 94799; 99284; G0378; J1200; J1630; J2405; J2470; J2543; J2550; J2765; J3410; J3480; J7030; Q9967